=== PATIENT | female | born 1950 | race Caucasian/White ===

== ENCOUNTER 2016-05-13 07:22 | Day surgery (SDC) | payer OTHER, MEDICARE ==
[~2016-05-13] VITALS: Ht 157.5 cm; Wt 61.7 kg
[~2016-05-13 07:22] MED LIST: ASPIR 8181 M1 PO; COENZYME Q10100 M1 PO; CYTOMEL5 MCG PO; DYAZIDE, MA1 CAPSULE PO; MULTIVITAMIN1 EAC2 PO; N ACETYL CYSTEINE PO; OMEGA 3-6-9 CO1 EACH PO; PRESERVISION A1 EAC2 PO; RED YEAST RICE600 M1 PO; TURMERIC COMPL1 EACH PO; VITAMIN B-122000 MC1 PO; VITAMIN D2000 UNIT PO; [UNRECOGNIZED DRUG - OTHER] PO; [UNRECOGNIZED DRUG - OTHER] PO
[2016-05-13] MEDS ORDERED: PREDNISONE10 MG PO (07:54)
== END 2016-05-13 18:02 | disposition home or self-care (01) ==
LOC: CATH 07:22
DX: I25.10 Atherosclerotic heart disease of native coronary artery without angina pectoris (principal); I34.0 Nonrheumatic mitral (valve) insufficiency; I10 Essential (primary) hypertension; E78.2 Mixed hyperlipidemia; E83.119 Hemochromatosis, unspecified; Z83.49 Family history of other endocrine, nutritional and metabolic diseases; Z82.49 Family history of ischemic heart disease and other diseases of the circulatory system; Z79.82 Long term (current) use of aspirin; Z88.2 Allergy status to sulfonamides; Z88.8 Allergy status to other drugs, medicaments and biological substances; Z91.09 Other allergy status, other than to drugs and biological substances
CPT/HCPCS: 93005; C1769; C1887; C1894; J1200; J1644; J2250; J2765; J2930; J3010

== ENCOUNTER 2016-06-11 09:40 | Emergency (ER) | payer OTHER, MEDICARE ==
[~2016-06-11] VITALS: Ht 157.5 cm; Wt 64.0 kg
[~2016-06-11 09:40] MED LIST changes: +PREDNISONE10 MG PO
[2016-06-11 11:46] LABS: HEMATOCRIT 49.2 % (36.0-46.0); MCH 31.5 PG (29.0-34.0); MCHC 33.7 G/DL (30.0-36.0); MCV 93.4 FL (83-99); MEAN PLAT.VOLUME 9.9 uM^3 (9.5-12.4); PLATELET COUNT 268 K/uL (156-360); RBC DIS.WIDTH-CV 11.9 % (11.8-14.6); RBC DIS.WIDTH-SD 41.8 % (39-53); RED BLOOD COUNT 5.27 M/uL (3.80-5.20)
[2016-06-11 11:55] LABS: CHLORIDE 107 mEq/L (99-109); POTASSIUM 3.7 mEq/L (3.7-5.4); SODIUM 146 mEq/L (136-147)
[2016-06-11 11:56] LABS: GLUCOSE 96 mg/dL (70-99)
[2016-06-11 11:58] LABS: ANION GAP 12 MEQ/L (2-14)
[2016-06-11 12:00] LABS: GFR ESTIMATE (CALCULATED) > 59 mL/min/
[2016-06-11 12:01] LABS: UREA NITROGEN (BUN) 12 mg/dL (9-23)
[2016-06-11 13:07] VITALS: BP 150/64
== END 2016-06-11 13:13 | disposition home or self-care (01) ==
LOC: EME 09:40
PROVIDERS: Emergency Medicine
DX: I10 Essential (primary) hypertension (principal)
CPT/HCPCS: 80048; 85027; 93005; 99281; 99285